=== PATIENT | female | born 1990 | race Asian ===

== ENCOUNTER 2018-07-28 17:49 | Emergency (ER) | payer MEDICAID ==
[~2018-07-28] VITALS: Ht 165.1 cm; Wt 91.2 kg
[~2018-07-28 17:49] MED LIST: PREN-129
[2018-07-28 20:31] VITALS: BP 119/79
== END 2018-07-28 20:47 | disposition home or self-care (01) ==
LOC: ER 17:49
DX: O26.893 Other specified pregnancy related conditions, third trimester (principal); S00.411A Abrasion of right ear, initial encounter; Z3A.33 33 weeks gestation of pregnancy; W22.8XXA Striking against or struck by other objects, initial encounter; Y93.89 Activity, other specified; Y92.89 Other specified places as the place of occurrence of the external cause; Y99.8 Other external cause status

== ENCOUNTER 2018-08-09 07:55 | Observation (INO) | payer MEDICAID | END 2018-08-09 10:50 | disposition home or self-care (01) | DRG 566 | LOC: LDRP 07:55 | PROVIDERS: ADMIT Obstetrics & Gynecology; ATTEND Obstetrics & Gynecology | DX: O24.419 Gestational diabetes mellitus in pregnancy, unspecified control (principal); Z3A.34 34 weeks gestation of pregnancy | CPT/HCPCS: 59025; 76818; 81002; 82962; G0378 ==

== ENCOUNTER 2018-08-23 08:52 | Observation (INO) | payer MEDICAID ==
[~2018-08-23] VITALS: Ht 165.1 cm; Wt 92.5 kg
== END 2018-08-23 11:20 | disposition home or self-care (01) | DRG 566 ==
LOC: LDRP 08:52
PROVIDERS: ADMIT Specialist; ATTEND Specialist
DX: O24.410 Gestational diabetes mellitus in pregnancy, diet controlled (principal); O36.63X0 Maternal care for excessive fetal growth, third trimester, not applicable or unspecified; Z3A.36 36 weeks gestation of pregnancy
CPT/HCPCS: 59025; 76818; 81002; 82962; G0378

== ENCOUNTER 2018-08-30 10:55 | Observation (INO) | payer MEDICAID | END 2018-08-30 12:54 | disposition home or self-care (01) | DRG 566 | LOC: LDRP 10:55 | PROVIDERS: ADMIT Specialist; ATTEND Specialist | DX: O24.419 Gestational diabetes mellitus in pregnancy, unspecified control (principal); O36.63X0 Maternal care for excessive fetal growth, third trimester, not applicable or unspecified; Z3A.37 37 weeks gestation of pregnancy | CPT/HCPCS: 59025; 76818; 81002; 82962; G0378 ==

== ENCOUNTER 2018-09-06 11:00 | Observation (INO) | payer MEDICAID | END 2018-09-06 12:30 | disposition home or self-care (01) | DRG 566 | LOC: LDRP 11:00 | PROVIDERS: ADMIT Obstetrics & Gynecology; ATTEND Obstetrics & Gynecology | DX: O24.419 Gestational diabetes mellitus in pregnancy, unspecified control (principal); Z3A.38 38 weeks gestation of pregnancy | CPT/HCPCS: 59025; 76818; 81002; 82962; G0378 ==

== ENCOUNTER 2018-09-17 00:22 | Inpatient (IN) | payer MEDICAID ==
[~2018-09-17] VITALS: Ht 165.1 cm; Wt 95.3 kg
[2018-09-17] VITALS (9 sets, daily range): BP systolic 118–134; BP diastolic 54–67
[2018-09-17] MEDS ORDERED: LACT. RINGERS/OXYTOCIN 20UNITS 1,000 ML IV SCH (00:30)
[2018-09-17] MEDS ORDERED: ACCU-CHEK COMFORT CURVE STRIP VI ONE (00:30)
[2018-09-17] MEDS ORDERED: LACTATED RINGER'S 1,000 ML IV SCH (00:30)
[2018-09-17] MEDS ORDERED: NALBUPHINE HCL 10 MG/1ml INJECTION IV PRN (00:30)
[2018-09-17] MEDS ORDERED: METHYLERGONOVINE MALEATE 0.2 MG/ML AMP IM PRN (00:30)
[2018-09-17] MEDS ORDERED: WITCH HAZEL-GLYCERIN PAD TOP PRN (00:30)
[2018-09-17] MEDS: LIDOCAINE 2%HCL (LOCAL ANESTH.) INJ 20ML MDV ID ONE (00:30)
[2018-09-17] MEDS ORDERED: PHISODERM TOP SOLN 240ML BTL TOP PRN (00:30)
[2018-09-17] MEDS ORDERED: PENICILLIN G POT 5MIL/D5 50ML 50 ML IV ONE ×2 (00:30→00:41)
[2018-09-17] MEDS ORDERED: DERMOPLAST 60ML BOTTLE TOP PRN (00:30)
[2018-09-17] MEDS ORDERED: LIDOCAINE 2%HCL (LOCAL ANESTH.) INJ 20ML MDV ONE (00:44)
[2018-09-17] MEDS ORDERED: LACT. RINGERS/OXYTOCIN 20UNITS 1,000 ML IV ONE (00:44)
[2018-09-17 01:15] LABS: Basophils # (auto) 0 uL; Basophils % (auto) 0.3 % (0.0-2.0); Eosinophils # (auto) 0.1 uL; Eosinophils % (auto) 0.6 % (0.0-7.0); Hematocrit 39.8 % (36.0-46.0); Hemoglobin 13.2 g/dL (12.2-16.2); Lymphocytes # (auto) 2.1 uL; Lymphocytes % (auto) 19.2 % (10.0-50.0); Mean Corpuscular Hemoglobin 29.9 pg (28.0-32.0); Mean Corpuscular Hgb Conc. 33.2 g/dL (32.0-36.0); Mean Corpuscular Volume 89.9 fL (80.0-100.0); Monocytes # (auto) 0.6 uL; Monocytes % (auto) 5.8 % (0.0-12.0); Neutrophils % (auto) 74.1 % (37.0-80.0); Platelet Count (auto) 300 10^3/uL (140-450); Red Blood Cells 4.43 10^6/uL (4.0-5.20); Red Cell Distribution Width 14.4 % (11.8-14.3); White Blood Cell 10.8 10^3/uL (4.4-10.8)
[2018-09-17] MEDS ORDERED: OXYTOCIN 10UNIT/ML 1ML VIAL IM ONE (01:27)
[2018-09-17] MEDS ORDERED: OXYTOCIN 10UNIT/ML 1ML VIAL ONE (01:28)
[2018-09-17 01:31] LABS: INR 0.93 (0.9-1.15); Partial Thromboplastin Time 31.6 sec (23.64-32.05)
[2018-09-17 01:38] LABS: Albumin 3.1 g/dL (3.4-5.0); BUN/Creatinine Ratio 12.5; Calcium 8.4 mg/dL (8.5-10.1); Potassium 3.3 mmol/L (3.5-5.1)
[2018-09-17 01:40] LABS: Bilirubin, Total 0.3 mg/dL (0.2-1.0); Total Protein 7.1 g/dL (6.4-8.2)
[2018-09-17] MEDS ORDERED: IBUPROFEN 600 MG TAB PO PRN (02:30)
[2018-09-17] MEDS ORDERED: diphenhdrAMINE HCL 25 MG CAP PO ONE (02:45)
--- NOTE | 2018-09-17 03:45 | NUR ---
WITH STAND BY ASSIST, PT AMBULATED TO BATHROOM WITHOUT DIFFICULTY, STEADY GATE, PT DENIES DIZZINESS, RINGING EARS, OR NAUSEA. VOID 200 ML. PERICARE EDUCATION PROVIDED AND TUCKS/SPRAY/ICE PROVIDED. PT VERBALIZED UNDERSTANDING. LINEN CHANGE PROVIDED AND PT AMBULATD WITHOUT DIFFICULTY BACK TO BED.
[2018-09-17] MEDS ORDERED: PENICILLIN G POTASSIUM 2,500,000 UNITS in D5W 5% 50 ML IV SCH (04:30)
[2018-09-17] MEDS: ACETAMINOPHEN 325 MG TAB PO PRN ×2 (09:13→14:58)
[2018-09-18 03:03] VITALS: BP 118/60
--- NOTE | 2018-09-18 06:15 | NUR ---
Report received from Matthew Gaines RN on stable pt. Assumed care. Addendum: 09/18/18 at 0623 by Chata Bose RN Amended: Links added.
[2018-09-18 06:52] VITALS: BP 130/60
[2018-09-18 07:06] LABS: RPR Non Reactive (Non Reactive)
[2018-09-18 11:30] VITALS: BP 120/68
--- NOTE | 2018-09-18 11:30 | NUR ---
Discharge: Discharge instructions given as ordered. Pt encouraged to follow up with [facility] [employer] as instructed. All questions and concerns addressed. Patient verbalized understanding. Medication reconciliation completed and copy given to patient. All required/requested vaccines given and copies of vaccinations given to patient. Patient encouraged to prepare to depart unit.
--- NOTE | 2018-09-18 11:48 | NUR ---
Discharge: Patient taken to vehicle via wheelchair with all personal belongings, accompanied by staff and family member. No distress noted at time of departure, no adverse changes in status since initial assessment.
== END 2018-09-18 11:48 | disposition home or self-care (01) | DRG 560 ==
LOC: OBSVTOIN 00:22 → INTOOBSV 00:22 → LDRP 00:22
PROVIDERS: ADMIT Obstetrics & Gynecology; ATTEND Obstetrics & Gynecology
PROC: 10E0XZZ Delivery of Products of Conception, External Approach (ICD-10-PCS; principal; 2018-09-17)
PROC: 0HQ9XZZ Repair Perineum Skin, External Approach (ICD-10-PCS; 2018-09-17)
DX: O80 Encounter for full-term uncomplicated delivery (principal); Z37.0 Single live birth; Z3A.39 39 weeks gestation of pregnancy
CPT/HCPCS: 36415; 59025; 59409; 80053; 82962; 84112; 85025; 85610; 85730; 86592; 86850; 86900; 86901; 96365; 96366; G0378; J2540; J2590; J7060

== ENCOUNTER 2020-11-16 02:58 | Emergency (ER) | payer MEDICAID ==
[~2020-11-16] VITALS: Ht 165.1 cm; Wt 83.9 kg
[2020-11-16 04:04] LABS: Urine Bacteria FEW /hpf (None Seen); Urine Blood Negative /uL (Negative); Urine Mucus FEW (None Seen); Urine Specific Gravity 1.004 (1.001-1.035); Urine WBC 1 /hpf (0 - 5)
[2020-11-16 04:05] LABS: Basophils # (auto) 0.1 10 ^3/uL (0-0.2); Basophils % (auto) 0.8 % (0.0-2.0); Eosinophils # (auto) 0.3 10 ^3/uL (0-0.8); Eosinophils % (auto) 2.9 % (0.0-7.0); Hematocrit 42.4 % (36.0-46.0); Hemoglobin 14.8 g/dL (12.2-16.2); Lymphocytes # (auto) 3.6 10 ^3/uL (0.4-5.4); Lymphocytes % (auto) 34.6 % (10.0-50.0); Mean Corpuscular Hemoglobin 30.2 pg (28.0-32.0); Mean Corpuscular Volume 86.4 fL (80.0-100.0); Monocytes # (auto) 0.7 10 ^3/uL (0-1.3); Monocytes % (auto) 6.6 % (0.0-12.0); Neutrophils # (auto) 5.8 10 ^3/uL (1.6-8.6); Neutrophils % (auto) 55.1 % (37.0-80.0); Nucleated Red Blood Cells % 0.1 %; Red Cell Distribution Width 13.6 % (11.8-14.3); White Blood Cell 10.5 10^3/uL (4.4-10.8)
[2020-11-16 04:18] LABS: BUN/Creatinine Ratio 13.3; Calcium 10.6 mg/dL (8.5-10.1); Potassium 4.1 mmol/L (3.5-5.1)
[2020-11-16 04:21] LABS: Bilirubin, Total 0.3 mg/dL (0.2-1.0); Total Protein 7.6 g/dL (6.4-8.2)
[2020-11-16 09:10] VITALS: BP 124/70
== END 2020-11-16 09:19 | disposition home or self-care (01) ==
LOC: ER 02:58
DX: N39.0 Urinary tract infection, site not specified (principal); K80.80 Other cholelithiasis without obstruction; Z79.899 Other long term (current) drug therapy
CPT/HCPCS: 36415; 74176; 80053; 81001; 81025; 83690; 85025

== ENCOUNTER 2020-12-13 12:40 | Inpatient (IN) | payer MEDICAID ==
[~2020-12-13] VITALS: Ht 165.1 cm; Wt 87.1 kg
[2020-12-13] MEDS ORDERED: MORPHINE SULFATE 4 MG/ML SYR/VIAL IV ONE (13:00)
[2020-12-13] MEDS ORDERED: ONDANSETRON HCL 4 MG/2 ML VIAL IV ONE (13:00)
[2020-12-13] MEDS ORDERED: PANTOPRAZOLE 40 MG/10 ML VIAL INJ IV ONE (13:00)
[2020-12-13 13:02] LABS: Urine WBC None Seen /hpf (0 - 5)
[2020-12-13 13:30] LABS: Basophils # (auto) 0.1 10 ^3/uL (0-0.2); Basophils % (auto) 0.6 % (0.0-2.0); Eosinophils # (auto) 0.1 10 ^3/uL (0-0.8); Eosinophils % (auto) 1.6 % (0.0-7.0); Hematocrit 46.1 % (36.0-46.0); Hemoglobin 15.1 g/dL (12.2-16.2); Lymphocytes # (auto) 2.1 10 ^3/uL (0.4-5.4); Mean Corpuscular Hemoglobin 28.6 pg (28.0-32.0); Mean Corpuscular Hgb Conc. 32.7 g/dL (32.0-36.0); Mean Corpuscular Volume 87.5 fL (80.0-100.0); Monocytes # (auto) 0.5 10 ^3/uL (0-1.3); Monocytes % (auto) 5.3 % (0.0-12.0); Neutrophils # (auto) 6.1 10 ^3/uL (1.6-8.6); Neutrophils % (auto) 68.5 % (37.0-80.0); Nucleated Red Blood Cells % 0.1 %; Red Blood Cells 5.28 10^6/uL (4.0-5.20); White Blood Cell 8.9 10^3/uL (4.4-10.8)
[2020-12-13 13:34] LABS: Urine Bacteria FEW /hpf (None Seen); Urine Blood Negative /uL (Negative); Urine Specific Gravity 1.002 (1.001-1.035)
[2020-12-13 13:47] LABS: Albumin 4.2 g/dL (3.4-5.0); Calcium 9.6 mg/dL (8.5-10.1); Potassium 3.9 mmol/L (3.5-5.1)
[2020-12-13 13:51] LABS: Bilirubin, Total 1.2 mg/dL (0.2-1.0); Total Protein 7.4 g/dL (6.4-8.2)
[2020-12-13 15:34] LABS: BUN/Creatinine Ratio 9.5
[2020-12-13] MEDS ORDERED: NITROGLYCERIN 0.4 MG SL TAB SL PRN (16:00)
[2020-12-13] MEDS ORDERED: ONDANSETRON HCL 4 MG/2 ML VIAL IV PRN (16:00)
[2020-12-13] MEDS ORDERED: MORPHINE SULFATE 4 MG/ML SYR/VIAL IV PRN (16:00)
[2020-12-13] MEDS ORDERED: ACETAMINOPHEN 500 MG TAB PO PRN (16:00)
[2020-12-13] MEDS ORDERED: MORPHINE SULFATE INJECTION 2 MG/ML SYRG IV PRN (16:00)
[2020-12-13 16:45] LABS: Amphetamine Screen, Urine NEGATIVE (NEGATIVE); Barbiturate Scree,Urine NEGATIVE (NEGATIVE); Benzodiazephine Screen, Urine NEGATIVE (NEGATIVE); Cannabinoid Screen, Urine POSITIVE (NEGATIVE); Cocaine Screen, Urine NEGATIVE (NEGATIVE); Opiate Scree,Urine NEGATIVE (NEGATIVE); Phencyclidine Screen, Urine NEGATIVE (NEGATIVE)
[2020-12-13 16:52] LABS: Alcohol, Urine < 3.0 mg/dL (0-10)
[2020-12-13] MEDS ORDERED: IOHEXOL 350 MG/ML 100ML IJ ONE (17:01)
[2020-12-13] MEDS ORDERED: IOHEXOL 300 MG/ML 100ML BOTTLE IJ ONE (17:53)
[2020-12-13] MEDS: POTASSIUM CHLORIDE 20 MEQ in D5W/LACTATED RINGERS 1,000 ML IV SCH (20:48)
[2020-12-13 22:15] VITALS: BP 117/64
[2020-12-14] MEDS: POTASSIUM CHLORIDE 20 MEQ in D5W/LACTATED RINGERS 1,000 ML IV SCH ×3 (01:57→12:42)
[2020-12-14 04:55] VITALS: BP 93/61
[2020-12-14 06:05] LABS: Basophils # (auto) 0.1 10 ^3/uL (0-0.2); Eosinophils # (auto) 0.2 10 ^3/uL (0-0.8); Eosinophils % (auto) 3.1 % (0.0-7.0); Hematocrit 42.5 % (36.0-46.0); Hemoglobin 14.4 g/dL (12.2-16.2); Lymphocytes # (auto) 2.8 10 ^3/uL (0.4-5.4); Lymphocytes % (auto) 38.5 % (10.0-50.0); Mean Corpuscular Hemoglobin 29.3 pg (28.0-32.0); Mean Corpuscular Hgb Conc. 33.8 g/dL (32.0-36.0); Mean Corpuscular Volume 86.8 fL (80.0-100.0); Monocytes # (auto) 0.5 10 ^3/uL (0-1.3); Monocytes % (auto) 7.5 % (0.0-12.0); Neutrophils # (auto) 3.6 10 ^3/uL (1.6-8.6); Neutrophils % (auto) 49.9 % (37.0-80.0); Nucleated Red Blood Cells % 0.2 %; Red Cell Distribution Width 13.8 % (11.8-14.3); White Blood Cell 7.2 10^3/uL (4.4-10.8)
[2020-12-14 06:21] LABS: INR 1.02 (0.9-1.15); Partial Thromboplastin Time 33.5 sec (23.6-33.0)
[2020-12-14 06:41] LABS: Albumin 3.9 g/dL (3.4-5.0); Calcium 8.9 mg/dL (8.5-10.1)
[2020-12-14 06:46] LABS: BUN/Creatinine Ratio 9.2; Bilirubin, Total 0.8 mg/dL (0.2-1.0); Total Protein 7.1 g/dL (6.4-8.2)
[2020-12-14 09:00] VITALS: BP 132/55
[2020-12-14] MEDS ORDERED: PHEN99.5 PO (10:45)
[2020-12-14] MEDS: FAMOTIDINE (10MG/ML) 2ML VL IV SCH (10:57)
[2020-12-14 13:00] VITALS: BP 139/55
[2020-12-14 17:00] VITALS: BP 133/75
[2020-12-14 21:40] VITALS: BP 108/71
[2020-12-15 04:56] VITALS: BP 117/64
[2020-12-15 07:31] LABS: Albumin 3.8 g/dL (3.4-5.0)
[2020-12-15 07:34] LABS: Bilirubin, Direct 0.3 mg/dL (0-0.2)
[2020-12-15] MEDS: POTASSIUM CHLORIDE 20 MEQ in D5W/LACTATED RINGERS 1,000 ML IV SCH (08:24)
[2020-12-15 09:00] VITALS: BP 124/71
[2020-12-15] MEDS: FAMOTIDINE (10MG/ML) 2ML VL IV SCH (09:51)
[2020-12-15 12:09] LABS: Hepatitis A Ab IgM Negative
[2020-12-15 12:18] LABS: Hepatitis B Surface Antigen Negative (Negative)
[2020-12-15 12:24] LABS: Hepatitis B Core IgM Negative
[2020-12-15] MEDS ORDERED: POVIDONE IODINE 10 % TOPICAL OINT 30GM TOP ONE (12:58)
[2020-12-15 13:00] VITALS: BP 132/76
[2020-12-15] MEDS ORDERED: ceFAZolin 1GM/50ML 100 ML IV ONE (13:00)
[2020-12-15] MEDS ORDERED: MIDAZOLAM HCL 2MG/2ML 2ml VIAL (1mg/ml) ONE (13:07)
[2020-12-15] MEDS ORDERED: HYDROmorphone HCL 2 MG/ML VL ONE (13:07)
[2020-12-15] MEDS ORDERED: ROCURONIUM 10MG/ML 10ML VIAL IV ONE (13:08)
[2020-12-15] MEDS ORDERED: PROPOFOL 10 MG/ML 20 ML IV ONE (13:08)
[2020-12-15] MEDS ORDERED: BUPIVACAINE W/ EPINEPH 0.25% INJ 50ML MDV ONE (13:27)
[2020-12-15] MEDS ORDERED: KETOROLAC TROMETH 30 MG/ML 1ML VIAL IV ONE (13:32)
[2020-12-15 13:44] LABS: Hepatitis C Antibody Negative (Negative)
[2020-12-15] MEDS ORDERED: METOCLOPRAMIDE HCL 5MG/ml INJ 2ml VIAL ONE (13:54)
[2020-12-15] MEDS ORDERED: DexAMETHasone SOD PHOS 10MG/1ML VIAL INJ ONE (13:54)
[2020-12-15] MEDS ORDERED: HYDROmorphone HCL 2 MG/ML VL IV PRN ×2 (14:45)
[2020-12-15] MEDS ORDERED: ONDANSETRON HCL 4 MG/2 ML VIAL IV PRN (14:45)
[2020-12-15] MEDS ORDERED: HYDROcodone-ACET 5/325MG TAB PO PRN (16:45)
[2020-12-15 17:00] VITALS: BP 127/66
[2020-12-15 22:00] VITALS: BP 149/64
[2020-12-15] MEDS: MORPHINE SULFATE INJECTION 2 MG/ML SYRG IV PRN (22:05)
[2020-12-16 05:00] VITALS: BP 129/68
[2020-12-16] MEDS: MORPHINE SULFATE INJECTION 2 MG/ML SYRG IV PRN (05:48)
[2020-12-16 06:40] LABS: Basophils # (auto) 0 10 ^3/uL (0-0.2); Eosinophils # (auto) 0 10 ^3/uL (0-0.8); Hematocrit 42.6 % (36.0-46.0); Hemoglobin 14.6 g/dL (12.2-16.2); Lymphocytes # (auto) 0.9 10 ^3/uL (0.4-5.4); Lymphocytes % (auto) 7.5 % (10.0-50.0); Mean Corpuscular Hgb Conc. 34.1 g/dL (32.0-36.0); Monocytes # (auto) 0.4 10 ^3/uL (0-1.3); Monocytes % (auto) 3.7 % (0.0-12.0); Neutrophils # (auto) 10.1 10 ^3/uL (1.6-8.6); Neutrophils % (auto) 88.8 % (37.0-80.0); Red Blood Cells 4.85 10^6/uL (4.0-5.20); Red Cell Distribution Width 13.5 % (11.8-14.3); White Blood Cell 11.4 10^3/uL (4.4-10.8)
[2020-12-16 07:11] LABS: Bilirubin, Direct 0.2 mg/dL (0-0.2); Bilirubin, Total 0.6 mg/dL (0.2-1.0); Total Protein 7.3 g/dL (6.4-8.2)
[2020-12-16 09:00] VITALS: BP 131/71
[2020-12-16] MEDS ORDERED: cefTRIAXone 1GM/50ML D5W 50 ML IV SCH (09:00)
[2020-12-16] MEDS: FAMOTIDINE (10MG/ML) 2ML VL IV SCH (09:26)
[2020-12-16] MEDS ORDERED: HYDR-4072 PO (11:21)
[2020-12-16] MEDS ORDERED: ONDA-144 PO (11:50)
[2020-12-16 13:00] VITALS: BP 140/87
[2020-12-16 13:24] VITALS: BP 131/71
== END 2020-12-16 16:15 | disposition home or self-care (01) | DRG 263 ==
LOC: ER 12:40 → OVERFLOW 15:51 → WEST WING 22:15
PROVIDERS: ADMIT Hospitalist; ATTEND Hospitalist
PROC: 0FT44ZZ Resection of Gallbladder, Percutaneous Endoscopic Approach (ICD-10-PCS; principal; 2020-12-15 13:32)
DX: K80.10 Calculus of gallbladder with chronic cholecystitis without obstruction (principal); F12.90 Cannabis use, unspecified, uncomplicated; Z20.822 Contact with and (suspected) exposure to COVID-19; Z82.49 Family history of ischemic heart disease and other diseases of the circulatory system; Z83.3 Family history of diabetes mellitus; Z87.440 Personal history of urinary (tract) infections
CPT/HCPCS: 36415; 71045; 74177; 74181; 76705; 80053; 80074; 80076; 80307; 81001; 81025; 83690; 85025; 85610; 85730; 86850; 86900; 86901; 87426; 96365; 96366; 96375; C9113; G0378; J0690; J0696; J1100; J1885; J2250; J2405; J2704; J3490